=== PATIENT | female | born 1970 | race Caucasian/White ===

== ENCOUNTER → 2023-11-18 07:17 | Outpatient (REF) | payer BC, SELFPAY | LOC: DHCBS HW 07:17 | PROVIDERS: ATTENDING PHYSICIAN Internal Medicine Interventional Cardiology; FAMILY PHYSICIAN Nurse Practitioner | DX: R00.2 Palpitations (principal); I49.3 Ventricular premature depolarization | CPT/HCPCS: 93306 ==

== ENCOUNTER → 2024-04-13 09:23 | Outpatient (REF) | payer BC, SELFPAY | LOC: HWWDC 09:23 | PROVIDERS: ATTENDING PHYSICIAN Nurse Practitioner | DX: Z12.31 Encounter for screening mammogram for malignant neoplasm of breast (principal) | CPT/HCPCS: 77063; 77067 ==

== ENCOUNTER → 2025-02-02 10:52 | Outpatient (REF) | payer BC, SELFPAY ==
[2025-02-02 10:57] LABS: % Basophils 0.7 % (0-2); % Eosinophils 2.1 % (0-6); % Immature Granulocytes 0.1 % (0-0.5); % Lymphocytes 20.5 % (20.5-51.1); % Monocytes 5.8 % (1.7-9.3); % Neutrophils 70.8 % (42.2-75.2); Absolute Basophils 0.1 10^3/uL (0-0.2); Absolute Eosinophils 0.2 10^3/uL (0-0.7); Absolute Lymphocytes 1.5 10^3/uL (1.2-3.4); Absolute Monocytes 0.4 10^3/uL (0.1-0.6); Absolute Neutrophils 5.2 10^3/uL (1.4-6.5); Hematocrit 40.3 % (37.0-47.0); Hemoglobin 13.4 g/dL (12.0-16.0); Mean Corp Hgb Conc. 33.3 g/dL (33.0-37.0); Mean Corpuscular Hgb 29.3 pg (27.0-31.0); Mean Corpuscular Volume 88.2 fL (81.0-99.0); Mean Platelet Volume 9.4 fL (7.4-10.4); Nucleated Red Blood Cells % 0 %; Platelet Count 302 10^3/uL (130-400); Red Blood Cell Count 4.57 10^6/uL (4.20-5.40); Red Cell Dist. Width 12.6 % (11.5-14.5); White Blood Cell Count 7.3 10^3/uL (4.8-10.8)
[2025-02-02 11:22] LABS: ALT (SGPT) 21 U/L (0-35); AST (SGOT) 26 U/L (14-36); Albumin 3.9 g/dl (3.5-5.0); Alkaline Phosphatase 92 U/L (38-126); Blood Urea Nitrogen 11 mg/dl (7-17); Calcium 9.7 mg/dl (8.4-10.2); Carbon Dioxide 29 mmol/L (22-30); Chloride 105 mmol/L (98-107); Glucose 99 mg/dl (70-99); Potassium 4.2 mmol/L (3.5-5.1); Sodium 141 mmol/L (135-145); Total Bilirubin 0.6 mg/dl (0.2-1.3); Total Protein 6.6 g/dl (6.3-8.2); eGFR > 60.00
== END ==
LOC: RAD 10:52
PROVIDERS: ATTENDING PHYSICIAN Nurse Practitioner Adult Health
DX: R31.29 Other microscopic hematuria (principal); R10.11 Right upper quadrant pain; R10.31 Right lower quadrant pain
CPT/HCPCS: 36415; 74177; 80053; 85025; Q9967

== ENCOUNTER 2025-02-11 06:17 | Day surgery (SDC) | payer BC, SELFPAY ==
[2025-02-11] VITALS (8 sets, daily range): BP systolic 110–141; BP diastolic 67–88; BMI 35.3
[2025-02-11] MEDS: NORMOSOL-R/PLASMALYTE-A 1000 IV (12:58)
[2025-02-16 16:38] LABS: Stone Analysis Mass 44 mg
== END 2025-02-11 16:30 | disposition home or self-care (01) ==
LOC: SDS 06:17
PROVIDERS: ATTENDING PHYSICIAN Surgery; FAMILY PHYSICIAN Nurse Practitioner Adult Health
DX: N13.2 Hydronephrosis with renal and ureteral calculous obstruction (principal)
CPT/HCPCS: 52356; 74018; 76000; 82365; A4300; C1758; C1769; C1894; C2617

== ENCOUNTER 2025-03-29 18:29 | Emergency (ER) | payer BC, SELFPAY ==
[2025-03-29 18:37] VITALS: BP 150/96
--- NOTE | 2025-03-29 19:02 | ED.GENMED ---
History of Present Illness
General
Chief Complaint: Eye Problems
Source: patient
Exam Limitations: none
Time Seen by Provider: 03/29/25 18:47
Nursing documentation reviewed up to this point in time: agreed with
History of Present Illness
History of Present Illness:
Patient to ED with complaint of dilated left pupil. States her eyes were itchy and irritated from dust in classroom so she applied Clear Eyes drops. State she applied more than directed to her left eye. She then noticed that her left pupil was
larger than right. Denies headache, dizziness, slurred speech, coordination issues. Brought t oED by spouse for eval
Past History
Past History
ED Past Medical History: Other (Kidney stones)
Social History
Tobacco: Non-smoker
Personal:
Review of Systems
Review of Systems
Allergies reviewed?: No
All Other Systems: ROS reviewed and negative except as documented in HPI and ROS
Constitutional: Reports no symptoms
EENT: Reports other (left pupil dilitation)
Respiratory: Reports no symptoms
Cardiac: Reports no symptoms
ABD/GI: Reports no symptoms
: Reports no symptoms
Musculoskeletal: Reports no symptoms
Skin: Reports no symptoms
Neurological: Reports no symptoms
Psychiatric: Reports no symptoms
Phy Exam
General Physical Exam
General Presentation: well appearing and no apparent distress
General Skin: warm
General Habitus: normal
General Mental: alert
Eye Exam
Eye Exam: conjunctiva normal and other (right pupil 2mm, left pupil 4mm. Both reactive to light. No eye pain, no vision changes.)
Mental
Mental Status: oriented to person, oriented to place, oriented to time and usual mental status
Cranial
Cranial Nerves: normal
EOM (CN3/4/6): intact
Motor
Seizure Activity: none
Gait: normal
Tremors: none
Sensory
Sensory Exam: intact
Cerebellar
Cerebellar Function: normal finger to nose and normal heel to price
Musculoskeletal Exam
Musculoskeletal Exam: full ROM and neuro vasc intact
Skin Exam
Skin Exam: normal color, warm/dry and no rash
Psychiatric Exam
Psychiatric Exam: normal mood/affect
Course
Vital Signs
Initial and Last Documented VS:
Initial Vital Signs
Temp Pulse Resp BP Pulse Ox
98.0 F 100 18 150/96 99
03/29/25 18:37 03/29/25 18:37 03/29/25 18:37 03/29/25 18:37 03/29/25 18:37
Last Documented Vital Signs
Temp Pulse Resp BP Pulse Ox
98.0 F 100 18 150/96 99
03/29/25 18:37 03/29/25 18:37 03/29/25 18:37 03/29/25 18:37 03/29/25 18:37
*Critical Care Note
Total Time (30-74mins, 75-104mins- exclusive of procedures): Not Applicable
Update Note
Update Note:
Patient to ED with complaint of left pupil dilitation after using Clear Eyes drops to her eye. No other symptoms, neuro exam otherwie normal. This is a side effect of the medication. Discussed this with her. She is discharged home and will follow
up with PCP Given instructions on s/s to return to ED and she is agreeable to plan.
ED Attending Note
-
Portions of this chart may have been created with voice recognition software.� Occasional wrong word or��sound alike� substitutions may have occurred due to the inherent limitations of voice recognition software.
Discharge Plan
Departure
Patient Disposition: Home (Routine Discharge)
Date of Disposition: 03/29/25
Time of Disposition: 18:58
Patient with high blood pressure during this ER visit?: No
Condition: Good
Covid-19: Not Applicable
Discharge Problem:
Dilated pupil
Instructions: Naphazoline (Ophthalmic)
Prescriptions:
No Action
propranolol 10 mg Tablet
10 mg PO DAILY
propranolol 10 mg Tablet
5 mg PO HS
ibuprofen [Advil] 200 mg Tablet
400 mg PO Q6H PRN (Reason: pain)
Tylenol Ex Str Arthritis Pain
Activity Restrictions/Additional Instructions:
Your pupil dilation is related to the Clear Eyes drops that you were using. Your pupil response and size will return to normal. Follow up wth your eye doctor as needed. Return to emergency department immediately for any changes in/worsening
of your symptoms.
Interventions
Interventions:
*Risk Screen - Suicide Last Done: 03/29/25 18:39
*General Assessment Last Done: 03/29/25 18:39
*Neglect/Abuse Screening Last Done: 03/29/25 18:39
*ED COVID-19 Vaccine History Last Done: 03/29/25 18:39
Discharge Date and Time
Print Language: [id number]
[2025-03-29 19:10] VITALS: BP 136/86
== END 2025-03-29 19:36 | disposition home or self-care (01) ==
LOC: EMR 18:29
PROVIDERS: EMERGENCY PHYSICIAN Student in an Organized Health Care Education/Training Program; FAMILY PHYSICIAN Nurse Practitioner Adult Health
DX: H57.04 Mydriasis (principal); T49.5X5A Adverse effect of ophthalmological drugs and preparations, initial encounter
CPT/HCPCS: 99281

== ENCOUNTER → 2025-06-02 13:27 | Outpatient (REF) | payer BC, SELFPAY | LOC: HWWDC 13:27 | PROVIDERS: ATTENDING PHYSICIAN Obstetrics & Gynecology; FAMILY PHYSICIAN Nurse Practitioner Adult Health | DX: Z12.31 Encounter for screening mammogram for malignant neoplasm of breast (principal) | CPT/HCPCS: 77063; 77067 ==